=== PATIENT | female | born 1985 | race Caucasian/White ===

== ENCOUNTER 2019-07-16 05:05 | Inpatient (IN) | payer OTHER, SELFPAY ==
[2019-06-18 13:30] VITALS: BMI 43.5
[2019-07-16] VITALS (106 sets, daily range): BP systolic 113–153; BP diastolic 41–111; PULSE 76–133; RESP 18; TEMP 36.8–37.5; O2SAT 98–100
--- NOTE | 2019-07-16 06:01 | LDADM ---
This patient, Elisabeth Shelton, was admitted to Labor/Delivery/Recovery 103 on 07/16/19 at 05:05. Plans for labor, pain management and were discussed with patient. Patient/family oriented to hospital policies and general routines including ID bracelet, bed and alarms, visiting hours, pain management, procedures, bathroom and other care routines, personal items, smoking policy, room service/diet and guest tray routines, security routines, and visiting hours. Patient/Family are encouraged to report perceived risks to care and to ask questions if they do not understand what they are told or what they should do. See OBIX for further documentation.
[2019-07-16 06:14] LABS: Basophils Percent Auto 0.3 % (0.2-1.2); Eosinophils Absolute Auto 0.1 K/mm3 (0-0.3); Eosinophils Percent Auto 0.6 % (0-4.4); Hematocrit 33.4 % (37.0-47.0); Hemoglobin 10.9 g/dL (12.0-15.0); Immature Granulocyte Absolute 0.05 K/mm3 (0.00-0.031); Immature Granulocyte Percent A 0.6 % (0-0.5); Lymphocytes Absolute Auto 1.69 K/mm3 (0.9-3.2); Lymphocytes Percent Auto 19.4 % (18.3-44.2); Mean Corpuscular HGB Conc 32.6 g/dl (32-36); Mean Corpuscular Hemoglobin 28.8 pg (26-34); Mean Corpuscular Volume 88.1 fl (80-100); Mean Platelet Volume 10.7 fl (7.4-10.4); Monocytes Absolute Auto 0.5 K/mm3 (0.1-0.6); Monocytes Percent Auto 5.3 % (2.6-8.5); Neutrophils Absolute Auto 6.4 K/mm3 (1.3-6.7); Neutrophils Percent Auto 73.8 % (45.5-73.1); Platelet Count Result 174 k/mm3 (150-375); Red Blood Count 3.79 M/mm3 (4.2-5.4); Red Cell Distribution Width 14.6 % (11.5-14.5); White Blood Count 8.7 K/mm3 (4.5-10.0)
--- NOTE | 2019-07-16 06:14 | P.HP_ITS ---
H&P: HPI History of Present Illness Chief complaint: induction Narrative: Elisabeth Shelton is a 34 year old female is admitted at term for induction. has been uncomplicated thus far Review of Systems Review of Systems: All systems reviewed & are unremarkable except as noted in HPI and below PMFSH Social History Social History Smoking status: Never smoker Substance use: never Gender identity (if verbalized by the patient): Female Spiritual care concerns: No Meds Home Medications and Allergies Allergies Allergy/AdvReac Type Severity Reaction Status Date / Time No Known Drug Allergies Allergy Verified 12/19/12 16:15 Exam Const: General: no acute distress Eyes: General: appearance normal, both eyes and all related structures Neck: Neck: supple and no JVD Thyroid: thyroid normal Resp: Effort & Inspection: normal respiratory effort Auscultation: clear to auscultation bilaterally Cardio: Rate: regular rate Rhythm: regular rhythm GI: Inspection: non-distended GI Palp: Yes Soft to palpation, No Tenderness to palpation present (GI) and No Guarding due to palpation present (GI) Auscultation: normal bowel sounds : General: Yes bladder normal to palpation External Female Exam: normal external appearance Speculum Exam - Vagina: normal vaginal discharge and No vaginal bleeding Speculum Exam - Cervix: nontender Bimanual exam- vagina & uterus: bladder normal to palpation and No Cervical tenderness present OB/ext ernal & speculum: No vaginal bleeding Skin: General skin exam: no rashes or lesions noted Extrem: General: normal to inspection and no edema Psych: Mental Status: mental status grossly normal Affect: normal affect Assessment and Plan Additional Plan Impression: Term with favorable cervix Plan: Lateral shoulder labor. Spontaneous vaginal delivery is expected. His epidural candidate
--- NOTE | 2019-07-16 06:23 | WPDOBADMIT ---
Obstetrics - Admit Note Admission Note: record reviewed. No pertinent additions to the history and/or any subsequent changes in the physical findings that are not consistent with the expected course of the were found. Additions to the history and/or subsequent changes in the physical findings follow. None. cx /-2 arom clear fhts reassuring
[2019-07-16] MEDS: LACTATED RINGERS 1,000 ML 125 ML IV CONT ×3 (06:49→11:46)
[2019-07-16] MEDS: OXYTOCIN 30 UNITS/NS 500 ML 30 UNITS/500 ML BAG IV CONT (06:49)
--- NOTE | 2019-07-16 11:16 | WPDANESEPP ---
Anes - Eval Pre Procedure Procedure: Labor Epidural Date/Time: 07/16/19 10:39 Surgeon: Augie Preop Diagnosis: labor pain Pre Op Diagnosis: induction Patient Data Age: 34 Gender: F Height: 5 ft 8 in Weight: 130 kg Last Vital Signs Temp 37.2 C 07/16/19 11:09 Pulse 98 07/16/19 11:15 BP 136/61 07/16/19 11:15 Pulse Ox 99 07/16/19 11:10 Allergies Allergy/AdvReac Type Severity Reaction Status Date / Time No Known Drug Allergies Allergy Verified 12/19/12 16:15 Laboratory Tests 07/16/19 07/16/19 07/16/19 06:02 06:02 06:02 WBC 8.7 K/mm3 K/mm3 (4.5-10.0) RBC 3.79 M/mm3 L M/mm3 (4.2-5.4) Hgb 10.9 g/dL L g/dL (12.0-15.0) Hct 33.4 % L % (37.0-47.0) MCV 88.1 fl fl (80-100) MCH 28.8 pg pg (26-34) MCHC 32.6 g/dl g/dl (32-36) RDW 14.6 % H % (11.5-14.5) Plt Count 174 k/mm3 k/mm3 (150-375) MPV 10.7 fl H fl (7.4-10.4) Immature Gran % (Auto) 0.6 % H % (0-0.5) Neut % (Auto) 73.8 % H % (45.5-73.1) Lymph % (Auto) 19.4 % % (18.3-44.2) [place] % (Auto) 5.3 % % (2.6-8.5) Eos % (Auto) 0.6 % % (0-4.4) Baso % (Auto) 0.3 % % (0.2-1.2) Lymph # (Auto) 1.69 K/mm3 K/mm3 (0.9-3.2) [place] # (Auto) 0.5 K/mm3 K/mm3 (0.1-0.6) Eos # (Auto) 0.1 K/mm3 K/mm3 (0-0.3) Baso # (Auto) 0.0 K/mm3 K/mm3 (0.0-0.1) Abs Immat Gran (auto) 0.05 K/mm3 H K/mm3 (0.00-0.031) Absolute Neuts (auto) 6.4 K/mm3 K/mm3 (1.3-6.7) Absolute Nucleated RBC 0.0 K/mm3 K/mm3 (0.0-0.012) Nucleated RBC % 0.0 % % (0.0-0.2) RPR Pending Blood Type O Positive Antibody Screen Negative Crossmatch See Detail : gestational age (STACEY 07/19/19) HCG: positive Patient hx anesthesia problems: none Family hx anesthesia problems: none PMFSH Social History Social History Smoking status: Never smoker Substance use: never Gender identity (if verbalized by the patient): Female Spiritual care concerns: No Exam Day of Procedure 07/16/19 11:16 Patient weight: obese and morbidly obese Heart: regular rate and rhythm and tachycardia Lungs: normal air movement Airway: Mallampati scale class II Neurological: alert and oriented
[2019-07-16 11:35] LABS: Rapid Plasma Reagin Non-Reactive (NonReactive)
--- NOTE | 2019-07-16 11:45 | PM.OBPNVD ---
OB - PN: Subj Subjective Date/time seen: 07/16/19 11:45 Interval history: cx 4cm by rn exam fhts reassuring epidural in OB - PN: Obj Data Labs CBC & Chem 7: 07/16/19 06:02 Labs: Laboratory Results - last 24 hr 07/16/19 07/16/19 07/16/19 06:02 06:02 06:02 WBC 8.7 RBC 3.79 L Hgb 10.9 L Hct 33.4 L MCV 88.1 MCH 28.8 MCHC 32.6 RDW 14.6 H Plt Count 174 MPV 10.7 H Immature Gran % (Auto) 0.6 H Neut % (Auto) 73.8 H Lymph % (Auto) 19.4 [place] % (Auto) 5.3 Eos % (Auto) 0.6 Baso % (Auto) 0.3 Lymph # (Auto) 1.69 [place] # (Auto) 0.5 Eos # (Auto) 0.1 Baso # (Auto) 0.0 Abs Immat Gran (auto) 0.05 H Absolute Neuts (auto) 6.4 Absolute Nucleated RBC 0.0 Nucleated RBC % 0.0 RPR Non-reactive Blood Type O Positive Antibody Screen Negative Crossmatch See Detail OB - PN A/P Time Spent With Patient Time: Total time spent is greater than 50% in coordination of care (as documented) at patient's floor/unit and/or counseling patient:
--- NOTE | 2019-07-16 14:05 | PM.OBPRVD ---
OB - Delivery Note Procedure Delivery date: 07/16/19 Intrapartal events: None Induction method: AROM Delivery augmentation: pitocin Delivery monitor: external FHT Route of delivery: Laceration description: Vaginal - 1st Degree Delivery repair: vicryl Specimen: No Estimated blood loss (mL): 57 Anesthesia type: Epidural Disposition: floor Baby Date of : 07/16/19 Time of : 13:53 Weeks of gestation at delivery: 39 gender: Male presentation: vertex position: Right Occiput Anterior Placenta delivery description: Spontaneous cord vessel description: 3 Vessels score one minute: 9 score five minutes: 9
[2019-07-16] MEDS: OXYTOCIN 30 UNITS/NS 500 ML 30 UNITS/500 ML BAG 125 UNITS IV CONT (14:35)
[2019-07-16] MEDS: WITCH HAZEL 40 PADS 1 PAD TOPICAL (17:29)
[2019-07-16] MEDS: BENZOCAINE 20% AER SPR (*SP) 56 GM CAN 1 SPRAY TOPICAL (17:29)
--- NOTE | 2019-07-16 17:40 | PC.NURSE ---
Patient transferred to post room #290 at 1740. Support person present. Oriented to unit, room, information board, rooming in, admission packet and security measures. Patient verbalizes understanding.
[2019-07-16] MEDS: ACETAMINOPHEN 325 MG TABLET 650 MG PO (18:10)
[2019-07-16] MEDS: DOCUSATE SODIUM 100 MG CAPSULE PO (18:10)
[2019-07-16] MEDS: IBUPROFEN 600 MG TABLET PO (18:10)
[2019-07-17] MEDS: ACETAMINOPHEN 325 MG TABLET 650 MG PO (00:54)
[2019-07-17] MEDS: IBUPROFEN 600 MG TABLET PO ×3 (00:55→16:48)
[2019-07-17 05:50] LABS: Hematocrit 31.4 % (37.0-47.0); Hemoglobin 10.1 g/dL (12.0-15.0)
--- NOTE | 2019-07-17 06:50 | P.PNOB_ITS ---
OB - PN: Subj Subjective Date/time seen: 07/17/19 06:50 Interval history: cx 4cm by rn exam fhts reassuring epidural in Patient comments: no complaints and pain well controlled baby status: doing well and nursing well OB - PN: Obj Data Labs CBC & Chem 7: 07/17/19 04:49 Labs: Laboratory Results - last 24 hr 07/16/19 07/16/19 07/17/19 06:02 06:02 04:49 Hgb 10.1 L Hct 31.4 L RPR Non-reactive Blood Type O Positive Antibody Screen Negative Crossmatch See Detail OB - PN A/P Plan day: 1 Plan: routine care Time Spent With Patient Time: Total time spent is greater than 50% in coordination of care (as d ocumented) at patient's floor/unit and/or counseling patient: Time with patient: less than 15 minutes Review of Systems Review of Systems: All systems reviewed & are unremarkable except as noted in HPI and below Exam Const: General: no acute distress Eyes: General: appearance normal, both eyes and all related structures Neck: Neck: supple and no JVD Thyroid: thyroid normal Resp: Effort & Inspection: normal respiratory effort Auscultation: clear to auscultation bilaterally Cardio: Rate: regular rate Rhythm: regular rhythm GI: Inspection: non-distended GI Palp: Yes Soft to palpation, No Tenderness to palpation present (GI) and No Guarding due to palpation present (GI) Auscultation: normal bowel sounds : General: Yes bladder normal to palpation External Female Exam: normal external appearance Speculum Exam - Vagina: normal vaginal discharge and No vaginal bleeding Speculum Exam - Cervix: nontender Bimanual exam- vagina & uterus: bladder normal to palpation and No Cervical tenderness present OB/external & speculum: No vaginal bleeding Skin: General skin exam: no rashes or lesions noted Extrem: General: normal to inspection and no edema Psych: Mental Status: mental status grossly normal Affect: normal affect
--- NOTE | 2019-07-17 07:50 | WPDANLDPN2 ---
Anes-Prog Note L&D Date/Time: 07/17/19 07:50 Comfortable throughout: labor and delivery Neuraxial method: epidural Epidural/Spinal procedure site: clean & non-tender Neuro status: Neuro function grossly intact. Vital Signs: Last Vital Signs Temp 37.0 C 07/16/19 19:30 Pulse 94 07/16/19 19:30 Resp 18 07/16/19 19:30 BP 140/87 07/16/19 19:30 Pulse Ox 99 07/16/19 19:30 I/O: Intake & Output 07/16/19 07/16/19 07/17/19 15:59 23:59 07:59 Intake Total 2000 Output Total 57 100 Balance 1943 -100 Post-procedural complaints: none Patient feedback: Patient satisfied with anesthetic care.
[2019-07-17] MEDS: DOCUSATE SODIUM 100 MG CAPSULE PO ×2 (08:01→16:48)
[2019-07-17 08:20] VITALS: BP 139/88; PULSE 92; RESP 18; TEMP 36.5; O2SAT 100
--- NOTE | 2019-07-17 10:35 | PC.NURSE ---
Consulted with patient, mother reports difficulties with latching. Mother states she had issues with first child and breastfed, pumped and bottle fed for several months. Mother states she wishes to breastfed this child and does not have the time to pump and bottle feed. If infant is not nursing effectively after one week mother will bottle feed stating she is not committed to otoole jaundice and is under bili lights and supplementing at this time. Discussed pumping, mother states she is not ready to start pumping process at this time. Reviewed feeding cues, frequencies, duration of feedings, feeding elimination flow sheet, and signs of adequate intake. Demonstrated stimulation techniques to wake infant for feeding. Assisted with to breast. Reviewed positioning/alignment in cross cradle, holding breast in U hold and guided asymmetrical latch on. Several attempts before infant was able to latch correctly. nursed eagerly with steady draws and occasional swallowing for short bursts followed with long pausing. Reviewed signs of a correct latch, effective nursing and suck swallow ratio. was able to maintain latch without discomfort to mother. Nipple care reviewed. Advised to stimulate to keep infant awake and nursing effectively for increased intake and maintaining deep latch. Instructed mother to call out for RN assistance if she is unable to latch for feeding or she has discomfort with nursing. Instructed feeding should be initiated three hours from start of last feeding or if feeding cues are noted before. Mother voiced understanding of information shared.
--- NOTE | 2019-07-17 11:48 | PC.NURSE ---
Pt. states she feels like she is having more than normal vaginal bleeding, she says it feels like it is just trickling out especially when she gets up to the bathroom. Fundus is firm at umbilicus, and no bleeding noted when fundus is palpated. Perineum inspected and a small laceration noted in the top upper right corner with no repair. Will continue to monitor, changed patients pad, told her to call out next time she changes it so I can see how much blood is on the pad.
--- NOTE | 2019-07-17 13:40 | PC.NURSE ---
Mother called for observation of latch. Mother was able to independently latch infant with appropriate positioning/alignment using cross cradle. is latched correctly nursing eagerly for short bursts followed with long pausing. Advised to keep wake and nursing. Parents will supplement after due to jaundice.
[2019-07-17 16:46] VITALS: BP 142/69; PULSE 101; RESP 18; TEMP 36.6; O2SAT 99
[2019-07-17 18:41] VITALS: BP 145/79; PULSE 106; RESP 15; TEMP 37; O2SAT 98
--- NOTE | 2019-07-18 06:10 | P.DS_ITS ---
DS: Admitting Diagnosis Admitting Diagnosis Admitting Diagnosis: term iup DS: Summary Time Spent with Patient Time attestation: Total time spent providing and/or coordinating discharge services: Exam Const: General: no acute distress Eyes: General: appearance normal, both eyes and all related structures Neck: Neck: supple and no JVD Thyroid: thyroid normal Resp: Effort & Inspection: normal respiratory effort Auscultation: clear to auscultation bilaterally Cardio: Rate: regular rate Rhythm: regular rhythm GI: Inspection: non-distended GI Palp: Yes Soft to palpation, No Tenderness to palpation present (GI) and No Guarding due to palpation present (GI) Auscultation: normal bowel sounds : General: Yes bladder normal to palpation External Female Exam: normal external appearance Speculum Exam - Vagina: normal vaginal discharge and No vaginal bleeding Speculum Exam - Cervix: nontender Bimanual exam- vagina & uterus: bladder normal to palpation and No Cervical tenderness present OB/external & speculum: No vaginal bleeding Skin: General skin exam: no rashes or lesions noted Extrem: General: normal to inspection and no edema Psych: Mental Status: mental status grossly normal Affect: normal affect Discharge Plan Discharge Attending physician on discharge: Leroy Blood Discharging Clinician: Leroy Blood Patient Disposition: Home, Self-Care Activity: may shower, no straining and pelvic rest Diet: heart healthy Patient Instructions: Antibiotic Form Stand Alone Forms: General Discharge Information Follow-up/Referrals: Leroy Blood MD [Physician] - Date of admission: 07/16/19 05:05 Primary Care Provider: PHYSICIAN,ASSISTANT PROFESSOR OF THEATER Admitting Provider: Leroy Blood Attending physician on admission: Leroy Blood
[2019-07-18 08:50] VITALS: BP 144/78; PULSE 105; RESP 18; TEMP 36.4; O2SAT 98
[2019-07-20 10:43] VITALS: BP 130/89; PULSE 95; RESP 20
== END 2019-07-18 17:45 | disposition home or self-care (01) | DRG 807 ==
LOC: ANHLDR 05:22 → ANHOB2 17:45
PROVIDERS: Admitting Provider Obstetrics & Gynecology; Visit Provider Obstetrics & Gynecology
DX: O99.214 Obesity complicating childbirth (principal); Z37.0 Single live birth; Z3A.39 39 weeks gestation of pregnancy; E66.01 Morbid (severe) obesity due to excess calories; O70.0 First degree perineal laceration during delivery
CPT/HCPCS: 36415; 85014; 85018; 85025; 86592; 86850; 86900; 86901; 86920; A9270; J2590; J2795; J7120

== ENCOUNTER 2021-06-05 19:09 | Emergency (ER) | payer OTHER, SELFPAY ==
--- NOTE | ~2021-06-05 | XR_ITS ---
EXAMINATION: XR chest 2V DATE: 06/05/2021 19:56 INDICATION: Chest and left arm pain. Racing pulse. TECHNIQUE: PA and lateral views of the chest were obtained. COMPARISON: None FINDINGS: Of the decreased lung volumes likely due to suboptimal inspiratory effort. No focal airspace opacitie s, pulmonary edema, pleural effusion or pneumothorax. The cardiomediastinal silhouette is normal. Vis ualized bones and soft tissues are unremarkable. IMPRESSION: 1. Small lung volumes. No acute cardiopulmonary disease. Reviewed, dictated and finalized at location A.
--- NOTE | ~2021-06-05 | CT_ITS ---
EXAMINATION: CTA chest PE protocol DATE: 06/05/2021 21:34 INDICATION: Tachycardia. Elevated d-dimer. TECHNIQUE: Computed tomography (CT) pulmonary angiogram of the chest was performed with 100 mL Omnipa que-350 intravenous contrast. Additional 3D reconstructions utilizing coronal maximum intensity proje ction (MIP) were performed. Automated exposure control and iterative reconstruction technique were em ployed. The dose-length product was 855.74 mGy-cm. COMPARISON: None FINDINGS: Good contrast opacification of the pulmonary arteries. There is mild streak artifact from dense contr ast in the superior vena cava and right atrium. Mild scattered respiratory motion artifact which does not significantly limit evaluation. No pulmonary embolism identified. Calcified nodules at the anter obasilar right lower lobe consistent with old granulomatous disease. No pneumonia, pulmonary edema, p leural effusion or pneumothorax. Heart size is normal. No pericardial effusion. Thoracic aorta is nor mal in caliber with no dissection. No pathologically enlarged thoracic lymphadenopathy. Visualized up per abdomen and bones are unremarkable. IMPRESSION: 1. No pulmonary embolism or other acute cardiopulmonary disease. Reviewed, dictated and finalized at location A.
--- NOTE | 2021-06-05 19:11 | ECG_ITS ---
Measurements Intervals [place] Rate: 104 P: 59 NE: 135 QRS: 2 QRSD: 95 T: 42 QT: 328 QTc: 432 Interpretive Statements SINUS TACHYCARDIA ABNORMAL RHYTHM ECG NO PREVIOUS ECG AVAILABLE FOR COMPARISON Electronically Signed On 06-06-2021 13:38:53 CDT by Kenya Montalvo M.D.
[2021-06-05 19:16] VITALS: BP 152/95; PULSE 102; RESP 20; TEMP 36.9; O2SAT 100
[2021-06-05 19:34] LABS: Basophils Absolute Auto 0.1 K/mm3 (0.0-0.1); Basophils Percent Auto 0.6 % (0.2-1.2); Eosinophils Absolute Auto 0.5 K/mm3 (0-0.3); Eosinophils Percent Auto 5.9 % (0-4.4); Hemoglobin 13.7 g/dL (12.0-15.0); Immature Granulocyte Absolute 0.01 K/mm3 (0.00-0.031); Immature Granulocyte Percent A 0.1 % (0-0.5); Lymphocytes Absolute Auto 2.99 K/mm3 (0.9-3.2); Lymphocytes Percent Auto 38.1 % (18.3-44.2); Mean Corpuscular HGB Conc 32.6 g/dl (32-36); Monocytes Absolute Auto 0.5 K/mm3 (0.1-0.6); Monocytes Percent Auto 5.9 % (2.6-8.5); Neutrophils Absolute Auto 3.9 K/mm3 (1.3-6.7); Neutrophils Percent Auto 49.4 % (45.5-73.1); Platelet Count Result 304 k/mm3 (150-375); Red Blood Count 4.72 M/mm3 (4.2-5.4); Red Cell Distribution Width 12.6 % (11.5-14.5); White Blood Count 7.9 K/mm3 (4.5-10.0)
[2021-06-05 19:42] VITALS: PULSE 100
[2021-06-05 19:44] LABS: Alanine Aminotransferase 19 U/L (4-35); Albumin Level 4.5 g/dL (3.5-5.1); Alkaline Phosphatase 94 U/L (38-126); Anion Gap 10 mmol/L (8-16); Aspartate Amino Transferase 23 U/L (14-36); Bilirubin,Total 0.5 mg/dL (0.2-1.3); Blood Urea Nitrogen 10 mg/dL (7-17); Carbon Dioxide 25 mmol/L (22-30); Chloride 102 mmol/L (98-107); Estimated Glomerular Filt Rate > 60; Glucose 119 mg/dL (65-110); Lipase 181 U/L (23-300); Potassium 4.3 mmol/L (3.4-5.0); Sodium 137 mmol/L (137-145)
[2021-06-05 19:55] LABS: Troponin I < 0.012 ng/mL (0.000-0.034)
--- NOTE | 2021-06-05 20:44 | ED.CHESTPAIN ---
HPI - Chest Pain General Chief Complaint: Chest Pain Stated Complaint: heart burn, left arm pain, high bp Time Seen by Provider: 06/05/21 19:40 Source: patient History of Present Illness HPI narrative: Patient presents with multiple complaints throughout the day. Patient reports she woke up with a annoyance in her chest that symptom has progressed throughout the day in the morning she also noted some left arm tingling which is now resolved. He also noted throughout the course of the day her apple watch noted a heart rate that was elevated to a max heart rate of 160. The annoyance in her chest never completely resolved she was not sure what to do so she came to the ER for further evaluation. Reports overall she is feeling better now than she did earlier today. The annoyance in her chest has been constant, no radiation, no clear aggravating or relieving factors she thought maybe it was esophageal irritation from her vitamins. She denies any current shortness of breath fevers cough congestion or lightheadedness. Denies any recent hospitalizations or surgeries denies any significant family history she does take Amitive control Related Data Home Medications Medication Instructions Recorded Confirmed norethindrone ac-eth estradiol tablet 06/05/21 Allergies Allergy/AdvReac Type Severity Reaction Status Date / Time No Known Allergies Allergy Verified 06/05/21 19:20 Review of Systems Review of Systems: CONSTITUTIONAL: Denies fever, chills, or sweats. EYES: Denies visual changes, redness, or discharge. ENT: Denies rhinorrhea, congestion, sore throat, or otalgia. CARDIOVASCULAR: Denies palpitations, or edema. RESPIRATORY: Denies cough or dyspnea. GASTROINTESTINAL: Denies abdominal pain, nausea, vomiting, or diarrhea. GENITOURINARY: Denies dysuria or hematuria. SKIN: Denies rash or itching. MUSCULOSKELETAL: Denies back pain, joint pain, or myalgia. NEUROLOGIC: Denies headache, numbness, dizziness, or weakness. PSYCHIATRIC: Denies anxiety or depression. All systems reviewed & are unremarkable except as noted in HPI and below PMFSH Past Medical History Medical History (Updated 06/06/21 @ 00:02 by Betito Villatoro MD) Patient denies significant medical history Social History Social History Smoking status: Never smoker Substance use: never Gender identity (if verbalized by the patient): Female Spiritual care concerns: No Exam Narrative: GENERAL: Well-appearing, well-nourished, and in no acute distress. HEAD: Normocephalic, atraumatic. EYES: PERRLA and EOMI. ENT: Nares clear, no rhinorrhea or epistaxis. Mucous membranes moist. NECK: Supple. No masses. No JVD CHEST: Clear to auscultation. No respiratory distress. No wheezes rales or rhonchi HEART: Regular rate and rhythm. No murmur heard. Normal peripheral pulses. ABDOMEN: Soft, nontender, nondistended, normal active bowel sounds. EXTREMITIES: Normal range of motion. No edema. SKIN: Warm, dry, no rash. NEURO: No focal deficits. Alert and oriented x3. PSYCH: Normal mood and affect. Course Reevaluation(s) Reevaluation #1: Patient resting comfortably and plan reviewed with patient. Patient is comfortable outpatient plan. Date: 06/06/21 Time: 00:00 Vital Signs Vital signs: Vital Signs Temperature 36.9 C 06/05/21 19:16 Pulse Rate 102 H 06/05/21 19:16 Respiratory Rate 20 06/05/21 19:16 Blood Pressure 152/95 H 06/05/21 19:16 Pulse Oximetry 100 06/05/21 19:16 Temperature 36.9 C 06/05/21 19:16 Pulse Rate 82 06/06/21 00:24 Respiratory Rate 16 06/06/21 00:24 Blood Pressure 142/90 H 06/06/21 00:24 Pulse Oximetry 100 06/06/21 00:24 MDM - Chest Pain MDM Narrative Medical decision making narrative: H&P as above, vss, pt looks clinically well, exam with clear chest, labs with a negative troponin after several hours of symptoms and elevated dimer otherwise clinically unr
[2021-06-05 20:50] LABS: Partial Thromboplastin Time 29.6 SECONDS (22.3-36.8); Prothrombin Time 13.2 Seconds (11.1-14.7)
--- NOTE | 2021-06-05 21:19 | PC.NURSE ---
patient refused bedside test for the scan. Patient states There is no possible way im .
[2021-06-06 00:24] VITALS: BP 142/90; PULSE 82; RESP 16; O2SAT 100
== END 2021-06-06 00:57 | disposition home or self-care (01) ==
PROVIDERS: Emergency Provider Emergency Medicine; PCP Family Medicine Adolescent Medicine
DX: R07.9 Chest pain, unspecified (principal); R00.0 Tachycardia, unspecified
CPT/HCPCS: 36415; 71046; 71275; 80053; 83690; 84484; 85025; 85380; 85610; 85730; 93005; 99284; Q9967